=== PATIENT | female | born 1985 | race Caucasian/White ===

== ENCOUNTER 2021-06-04 08:29 | Emergency (ER) | payer BC ==
[2021-06-04] MEDS ORDERED: CASIRIVIMAB/IMDEVIMAB 10 ML in SODIUM CHLORIDE 100 ML IVPB ONE ×2 (08:38→09:30)
[2021-06-04 08:40] VITALS: BP 111/68; PULSE 98; TEMP 98.5; BMI 22.4
== END 2021-06-04 13:51 | disposition home or self-care (01) ==
LOC: JCOVINFU 08:29
DX: U07.1 COVID-19 (principal)
CPT/HCPCS: 99284-25; Q0240